=== PATIENT | female | born 1980 | race Two or more races ===

== ENCOUNTER 2020-03-22 09:12 | Outpatient (CLI) | payer OTHER | END 2020-03-22 09:31 | disposition home or self-care (01) | LOC: SONOGRAMA 09:12 → MAMO-SONO 09:45 | PROVIDERS: ATTEND Obstetrics & Gynecology | DX: N84.0 Polyp of corpus uteri (principal) ==

== ENCOUNTER 2022-08-21 08:55 | Day surgery (SDC) | payer OTHER ==
[2022-08-21] MEDS ORDERED: ZITHROMAX500 MG PO (13:20)
[2022-08-21] MEDS ORDERED: IBU400 MG PO (13:20)
== END 2022-08-21 16:00 | disposition home or self-care (01) ==
LOC: CIR.AMB 08:55
PROVIDERS: ATTEND Obstetrics & Gynecology
DX: N84.0 Polyp of corpus uteri (principal); Z20.822 Contact with and (suspected) exposure to COVID-19; E16.2 Hypoglycemia, unspecified